=== PATIENT | female | born 1955 | race Caucasian/White ===

== ENCOUNTER 2020-01-19 05:08 | Emergency (ER) | payer BC ==
[2020-01-19 06:12] LABS: APPEARANCE,URINE CLEAR; BILIRUBIN,URINE NEGATIVE (NEGATIVE); COLOR,URINE YELLOW; GLUCOSE, URINE NEGATIVE (NEGATIVE); KETONES,URINE 20 mg/dL (NEGATIVE); LEUKOCYTE ESTERASE,URINE SMALL (NEGATIVE); NITRITE,URINE NEGATIVE (NEGATIVE); PROTEIN,URINE 30 mg/dL (NEGATIVE); URINE SPECIFIC GRAVITY 1.025; UROBILINOGEN,URINE NEGATIVE mg/dL (<2.0)
[2020-01-19 08:02] LABS: HEMATOCRIT 39.2 % (36.0-47.0); HEMOGLOBIN 13.6 g/dL (12.0-15.5); MEAN CORPUSCULAR HEMOGLOBIN 31.1 pg (27.0-33.4); MEAN CORPUSCULAR HGB CONC 34.6 g/dL (32.0-36.0); MEAN CORPUSCULAR VOLUME 90 fl (80-97); PLATELET COUNT 273 10^3/uL (150-450); RED BLOOD COUNT 4.35 10^6/uL (3.72-5.28); RED CELL DISTRIBUTION WIDTH 13.6 % (11.5-14.0); WHITE BLOOD COUNT 26.9 10^3/uL (4.0-10.5)
[2020-01-19 08:25] LABS: ABSOLUTE LYMPHOCYTES# (MANUAL) 2.7 10^3/uL (0.5-4.7); ABSOLUTE MONOCYTES # (MANUAL) 1.1 10^3/uL (0.1-1.4); BASOPHILS % (MANUAL) 0 % (0-2); EOSINOPHILS % (MANUAL) 0 % (0-6); LYMPHOCYTES % (MANUAL) 10 % (13-45); MONOCYTES % (MANUAL) 4 % (3-13); SEGMENTED NEUTROPHILS % (MAN) 86 % (42-78); TOTAL CELLS COUNTED 100
[2020-01-19 08:26] LABS: ANISOCYTOSIS SLIGHT; PLATELET CLUMPS PRESENT; PLATELET COMMENT ADEQUATE
[2020-01-19] MEDS ORDERED: NORMAL SALINE 1000 ML 1,000 ML IV ONE ×2 (08:28→13:19)
[2020-01-19] MEDS ORDERED: VANCOMYCIN HCL INJ 1000 MG VIAL IV ONE (08:29)
[2020-01-19] MEDS ORDERED: CEFEPIME 1 GM/D5W RTU 1 GM/50 ML RTUPB IV ONE (08:29)
[2020-01-19] MEDS ORDERED: ONDANSETRON HCL INJ/PF 4 MG/2 ML SDV IV ONE (10:34)
[2020-01-19] MEDS ORDERED: MORPHINE SULFATE 10 MG/ML INJ IV ONE (10:35)
[2020-01-19 12:00] LABS: ALBUMIN 4.9 g/dL (3.5-5.0); ALKALINE PHOSPHATASE 65 U/L (38-126); ANION GAP 13 (5-19); ASPARTATE AMINO TRANSFERASE 30 U/L (14-36); BILIRUBIN,DIRECT 0.3 mg/dL (0.0-0.4); BILIRUBIN,TOTAL 0.7 mg/dL (0.2-1.3); BLOOD UREA NITROGEN 10 mg/dL (7-20); CALCIUM 9.7 mg/dL (8.4-10.2); CARBON DIOXIDE 25 mmol/L (22-30); CHLORIDE 98 mmol/L (98-107); GLUCOSE 160 mg/dL (75-110); POTASSIUM 3.5 mmol/L (3.6-5.0); TOTAL PROTEIN 7.6 g/dL (6.3-8.2)
--- NOTE | 2020-01-19 12:45 | RADIOLOGY REPORT (SQ) ---
EXAM DESCRIPTION: CT ABD/PELVIS WITH IV ORAL IMAGES COMPLETED DATE/TIME: 01/19/2020 12:30 pm REASON FOR STUDY: llq abd pain /leukocytosis COMPARISON: None. TECHNIQUE: CT scan of the abdomen and pelvis performed using helical scanning technique with dynamic intravenous contrast injection. Patient was given oral contrast. Images reviewed with lung, soft ti ssue, and bone windows. Reconstructed coronal and sagittal MPR images reviewed. Delayed images for ev aluation of the urinary system also acquired. All images stored on PACS. All CT scanners at this facility use dose modulation, iterative reconstruction, and/or weight based d osing when appropriate to reduce radiation dose to as low as reasonably achievable (ALARA). [facility]: Dose Right [facility]: CareDose [facility]: Dose Right [facility]: Teradose 4D [facility]: Zettics CONTRAST TYPE AND DOSE: contrast/concentration: Isovue 350.00 mmol/ml; Total Contrast Delivered: 73. 0 ml; Total Saline Delivered: 66.0 ml RENAL FUNCTION: Creatinine 0.64 RADIATION DOSE: CT Rad equipment meets quality standard of care and radiation dose reduction techniq ues were employed. CTDIvol: 6.2 - 8.3 mGy. DLP: 773 mGy-cm.. LIMITATIONS: None. FINDINGS: LOWER CHEST: No significant findings. No nodules or infiltrates. LIVER: Decreased hepatic attenuation, likely steatosis. No focal lesions. No ductal dilation. SPLEEN: Normal size. No focal lesions. PANCREAS: No masses. No significant calcifications. No adjacent inflammation or peripancreatic fluid collections. Pancreatic duct not dilated. GALLBLADDER: No identified stones by CT criteria. No inflammatory changes to suggest cholecystitis. ADRENAL GLANDS: No significant masses or asymmetry. RIGHT KIDNEY AND URETER: No solid masses. No significant calcifications. No hydronephrosis or hyd roureter. LEFT KIDNEY AND URETER: No solid masses. No significant calcifications. No hydronephrosis or hydr oureter. AORTA AND VESSELS: No aneurysm. No dissection. Renal arteries, SMA, celiac without stenosis. RETROPERITONEUM: No retroperitoneal adenopathy, hemorrhage or masses. BOWEL AND PERITONEAL CAVITY: Scattered colonic diverticula with ill-defined stranding about the sigmo id colon (series 3, image [id number]). No significant free intraperitoneal gas. No drainable collection . APPENDIX: Normal. PELVIS: Mildly distended urinary bladder. No pelvic free fluid, adenopathy or mass. ABDOMINAL WALL: No masses. No hernias. BONES: No significant or acute findings. T11 hemangioma. OTHER: No other significant finding. IMPRESSION: Findings compatible with uncomplicated sigmoid diverticulitis. No focal drainable colle ction. TECHNICAL DOCUMENTATION: JOB ID: [id number] Quality ID # [id number]: Final reports with documentation of one or more dose reduction techniques (e.g., Au tomated exposure control, adjustment of the mA and/or kV according to patient size, use of iterative reconstruction technique) 2010 [email or web address]- All Rights Reserved Reading location - IP/workstation name: [email or web address]-
--- NOTE | 2020-01-19 14:21 | ER Document Report ---
Entered by ADILSON LINCOLN SCRIBE 01/19/20 0837 Acting as scribe for:TODD MESA MD ED GI/ - General Chief Complaint: Abdominal Pain Stated Complaint: LOWER ABDOMINAL PAIN Mode of Arrival: Ambulatory Information source: Patient Notes: This 64 year old female patient presents to the ED today with complaints of LLQ abdominal pain that started x2 days ago after eating dinner. Patient describes the pain as a cramping sensation that is severe in nature. She denies any nausea/vomiting/diarrhea, stating that she has been able to tolerate PO intake. She mentions that she had x2 normal bowel movements yesterday morning, but none since. She notes a family history of diverticulitis, but denies any personal history except for hypertension and hyperlipidemia. Denies any abdominal surgeries. No neck or back pain or bloody stools. - Related Data Allergies/Adverse Reactions: No Known Allergies Allergy (Unverified 01/19/20 05:38) Past Medical History - General Information source: Patient - Social History Smoking Status: Former Smoker Smoking Education Provided: No Frequency of alcohol use: None Drug Abuse: Marijuana Lives with: Spouse/Significant other Family History: Reviewed & Not Pertinent Patient has suicidal ideation: No Patient has homicidal ideation: No - Past Medical History Cardiac Medical History: Reports: Hx Hypercholesterolemia, Hx Hypertension GI Medical History: Reports: Hx Colonoscopy Past Surgical History: Reports: Hx Tonsillectomy, Other - Ear surgery Review of Systems - Review of Systems Constitutional: No symptoms reported EENT: No symptoms reported Cardiovascular: No symptoms reported Respiratory: No symptoms reported Gastrointestinal: See HPI, Abdomen distended, Abdominal pain, Constipation. denies: Diarrhea, Nausea, Vomiting, Blood streaked bowels Genitourinary: No symptoms reported Female Genitourinary: No symptoms reported Musculoskeletal: See HPI. denies: Back pain, Neck pain Skin: No symptoms reported Hematologic/Lymphatic: No symptoms reported Neurological/Psychological: No symptoms reported -: Yes All other systems reviewed and negative Physical Exam - Vital signs Vitals: Temp Pulse Resp BP Pulse Ox 98.4 F 117 H 15 144/63 H 98 01/19/20 05:23 01/19/20 05:23 01/19/20 05:23 01/19/20 05:23 01/19/20 05:23 - General General appearance: Appears well - Nontoxic appearance, Alert In distress: None - HEENT Head: Normocephalic, Atraumatic Eyes: Normal Pupils: PERRL Tympanic membrane: Normal. No: Injected Nasal: Normal Pharynx: Normal. No: Erythema Neck: Normal, Supple - Respiratory Respiratory status: No respiratory distress Chest status: Nontender Breath sounds: Normal Chest palpation: Normal - Cardiovascular Rhythm: Regular Heart sounds: Normal auscultation, S1 appreciated, S2 appreciated Murmur: No Friction rub: No Gallop: None auscultated - Abdominal Inspection: Normal Distension: Distended Tenderness: Tender - LLQ tenderness to palpation, Guarding, Rebound Organomegaly: No organomegaly - Back Back: Normal, Nontender - Extremities General upper extremity: Normal inspection General lower extremity: Normal inspection. No: Edema - Neurological Neuro grossly intact: Yes Orientation: AAOx4 Khushi Coma Scale Eye Opening: Spontaneous Khushi Coma Scale Verbal: Oriented Khushi Coma Scale Motor: Obeys Commands [place] Coma Scale Total: 15 - Psychological Associated symptoms: Normal affect, Normal mood - Skin Skin Temperature: Warm Skin Moisture: Dry Skin Color: Normal Course - Re-evaluation Re-evalutation: 01/19/20 14:18 Patient resting comfortably not showing signs of distress at this time patient has not mounted a fever spike or chills during the ED visit. 01/19/20 14:20 Case was discussed with the hospitalist team and due to the fact the patient has an uncomplicated diverticulitis outpatient management should be the preferred route versus admission to the hospital at this time. - Vital Signs Vital signs: Temp Pulse Resp BP Pulse Ox 98.4 F 117 H 15 144/63 H 98 01/19/20 05:23 01/19/20 05:23 01/19/20 05:23 01/19/20 05:23 01/19/20 05:23 01/19/20 14:18 Vital signs are stable. - Laboratory Result Diagrams: 01/19/20 07:50 01/19/20 11:20 Laboratory results interpreted by me: 01/19/20 01/19/20 01/19/20 05:50 07:50 11:20 WBC 26.9 H Seg Neuts % (Manual) 86 H Lymphocytes % (Manual) 10 L Abs Neuts (Manual) 23.1 H Sodium 135.9 L Potassium 3.5 L Glucose 160 H Urine Protein 30 H Urine Ketones 20 H Urine Blood SMALL H Ur Leukocyte Esterase SMALL H Urine Ascorbic Acid 40 H 01/19/20 14:18 White blood cells elevated at 27,000 potassium 3.5 marginally at the lower edge of normal urinalysis with small leukocyte esterase and small blood urine protein 30. - Diagnostic Test Radiology reviewed: Image reviewed, Reports reviewed Radiology results interpreted by me: 01/19/20 14:19 Abdomen/Pelvis CT 01/19/20 00:00 IMPRESSION: Findings compatible with uncomplicated sigmoid diverticulitis. No focal drainable collection. CT scan of abdomen and pelvis shows sigmoid diverticulitis. No other complications. Discharge - Discharge Clinical Impression: Sigmoid diverticulitis, Leukocytosis Condition: Stable Disposition: HOME, SELF-CARE Instructions: Ciprofloxacin ([facility]), Diverticulitis ([facility]) Additional Instructions: Diverticulitis You have been diagnosed as having diverticulitis. This is an inflammation of a small pouch attached to the colon, called a diverticulum. Many of these small pouches can form on the colon as you get older. They are often caused by constipation. When inflamed or infected, symptoms arise -- usually abdominal pain, constipation or diarrhea, fever, and blood in the stool. Severe diverticulitis may require hospitalization. More mild cases are usually treated with antibiotics and clear liquid diet. As you improve, a diet low in residue (one which forms little stool) is prescribed. When you are better, you should eat a high-fiber diet. Stool softeners (like Metamucil) are usually recommended. Call the doctor or go to the hospital if there is increasing pain, vomiting, high fever, large amounts of blood passed, or if bowel movements cease. You have been placed on 2 antibiotics one is ciprofloxacin and the other is Flagyl. Also we are recommending you begin using stool softeners. If for any reason you are worsening ... having fever chills, intractable nausea vomiting worsening pain then return immediately to the emergency department. Otherwise follow-up with your primary care physician in 3 days. I recommend that you begin taking Tylenol 1000 mg twice a day if needed for pain. Prescriptions: Ciprofloxacin HCl [Cipro 500 mg Tablet] 500 mg PO BID #20 tablet Metronidazole [Flagyl 500 mg Tablet] 500 mg PO BID #20 tablet I personally performed the services described in the documentation, reviewed and edited the documentation which was dictated to the scribe in my presence, and it accurately records my words and actions.
[2020-01-19 16:10] VITALS: BP 98/78
== END 2020-01-19 16:12 | disposition home or self-care (01) ==
LOC: ER 05:08
DX: K57.32 Diverticulitis of large intestine without perforation or abscess without bleeding (principal); I10 Essential (primary) hypertension; E78.5 Hyperlipidemia, unspecified; F12.10 Cannabis abuse, uncomplicated; Z83.79 Family history of other diseases of the digestive system; Z87.891 Personal history of nicotine dependence
CPT/HCPCS: 99285; 96360; 96361; 36415; 87040; 83605; 83690; 85025; 80053; 81001; 74177; J2270; J2405; J7030; J3370; J0692